=== PATIENT | female | born 1950 | race Caucasian/White ===

== ENCOUNTER 2022-02-12 08:11 | Outpatient (CLI) | payer MEDICARE, SELFPAY ==
[2022-02-12 13:33] LABS: Albumin* 4.4 g/dL (3.3-5.0); Chloride* 103 mmol/L (96-114); Sodium* 137 mmol/L (135-149)
[2022-02-12 13:34] LABS: Potassium* 4.3 mmol/L (3.6-5.1)
[2022-02-12 13:36] LABS: Aspartate Amino Transferase* 22 U/L (12-35); Bilirubin Total* 0.7 mg/dL (0.1-1.5); Blood Urea Nitrogen* 16 mg/dL (7-30); Carbon Dioxide* 28 mmol/L (20-32); Cholesterol* 242 mg/dL (90-199); Creatinine* 0.7 mg/dL (0.5-1.5); Estimated Glomerular Filt Rate 93.56; Glucose* 102 mg/dL (60-115); Triglycerides* 103 mg/dL (40-149)
[2022-02-12 13:37] LABS: Alanine Aminotransferase* 23 U/L (4-35); Alkaline Phosphatase* 71 U/L (40-150); Calcium* 9.8 mg/dL (8.4-10.6); HDL Cholesterol* 71 mg/dL (>=50); LDL Cholesterol Calculated 150 mg/dL (<100)
[2022-02-12 14:08] LABS: Free T4 Free Thyroxine* 1.01 ng/dL (0.70-1.85)
== END 2022-02-12 08:12 | disposition home or self-care (01) ==
PROVIDERS: PCP Physician Assistant Medical; Visit Provider Physician Assistant Medical
DX: I10 Essential (primary) hypertension (principal); E78.5 Hyperlipidemia, unspecified; M85.80 Other specified disorders of bone density and structure, unspecified site; R79.89 Other specified abnormal findings of blood chemistry
CPT/HCPCS: 80053; 80061; 84439; 84443

== ENCOUNTER 2022-03-25 13:42 | Outpatient (CLI) | payer MEDICARE, SELFPAY ==
--- NOTE | 2022-03-25 14:00 | CRLHL7_ITS ---
For Patients: As a result of the Cures Act, medical imaging exams and procedure reports are released immediately into your electronic medical record. You may view this report before your referring provider. If you have questions, please contact your health care provider. DXA BONE MINERAL DENSITY STUDY, 03/25/2022 Current height (inches): 67.0 Weight (lbs.): 220.0 Menopause age: 59 Ethnicity: White 1. Have you had a previous hip or vertebral fracture? No. 2. Have you had any fractures during your adult life which did not result from significant trauma (e.g., auto accident)? No. 3. Did either of your parents have a hip fracture? No. 4. Do you smoke? No. 5. Have you ever taken Glucocorticoids? No. 6. Do you have rheumatoid arthritis? No. 7. Do you have secondary osteoporosis? No. 8. Do you drink 3 or more alcoholic drinks per day? No. 9. Are you being treated for osteoporosis? No. 10. Have you ever taken any of the following medications: Actonel, Evista, Fosamax, Miacalcin, Reclast, Boniva, Forteo, HRT (i.e., estrogen/hormone therapy), Protelos, Prolia, Vitamin D, Calcium, other ??? please specify. ANSWER: Yes; vitamin D and calcium. 11. Do you have any of the following medical conditions: Anorexia or bulimia, asthma or emphysema, end stage renal disease, hyperparathyroidism, any seizure disorders, cancer, inflammatory bowel diseases, hysterectomy, other ??? please specify. ANSWER: Yes; hysterectomy. 12. What was your maximum height (inches)? 67. 13. Do you perform weight bearing exercise regularly? Yes. 14. Do you regularly consume dairy products? Yes. 15. Do you drink caffeinated beverages? Yes. If female: 16. At what age did your period start? 14. 17. Are you premenopausal? No. 18. How many full-term pregnancies have you had? 2. 19. Have you ever missed your period for more than 6 months in a row (not including or menopause)? No. TECHNIQUE: Bone mineral density study was performed using the [employer]. FINDINGS: The results of the study expressed as bone mineral density (BMD) are as follows: Lumbar Spine L1 to L4: BMD: 1.040 g/cm2. T-score: -0.1. Z-score: 2.0. Neck Left: BMD: 0.757 g/cm2. T-score: -0.8. Z-score: 0.9. Right: BMD: 0.682 g/cm2. T-score: -1.5. Z-score: 0.3. Total Left: BMD: 0.944 g/cm2. T-score: 0.0. Z-score: 1.5. Right: BMD: 0.896 g/cm2. T-score: -0.4. Z-score: 1.1. IMPRESSION: Osteopenia. COMPARISON: Compared with scan of 09/13/2019, the bone mineral density has increased by 3.6 percent at the spine and increased by 3.8 percent at the hip. *Comparison exams done prior to 01/2020 were performed on different unit, [facility]. FRAX 10-year Fracture Risk Major Osteoporotic Fracture: 9.2 percent Hip Fracture: 1.2 percent Reported Risk Factors: [place] () Neck BMD = 0.682, BMI = 34.5 NASEEM GAONA M.D. Diagnostic Radiologist [email or web address] Transcribed: 5:[address]/Dictated by: Naseem Gaona MD @ 03/25/2022 3:56:00 PM (Electronically Signed)
== END 2022-03-25 13:43 | disposition home or self-care (01) ==
LOC: RAD 13:43
PROVIDERS: PCP Physician Assistant Medical; Visit Provider Physician Assistant Medical
DX: M85.80 Other specified disorders of bone density and structure, unspecified site (principal); M85.89 Other specified disorders of bone density and structure, multiple sites
CPT/HCPCS: 77080

== ENCOUNTER 2022-05-19 11:10 | Outpatient (CLI) | payer MEDICARE, SELFPAY ==
--- NOTE | 2022-05-19 | CRLHL7_ITS ---
For Patients: As a result of the Century Cures Act, medical imaging exams and procedure reports are released immediately into your electronic medical record. You may view this report before your referring provider. If you have questions, please contact your health care provider. INDICATION: Pain COMPARISON: None. TECHNIQUE: A compression venous ultrasound exam was performed of the right lower extremity using dave-scale imaging, color Doppler and spectral Doppler analysis. FINDINGS: Sonographic imaging of the right lower extremity demonstrates normal compressibility and color Doppler venous blood flow within the common femoral vein, deep femoral vein, and the proximal greater saphenous vein. Within the thigh, the femoral vein is patent and compressible. At a lower level, the popliteal and posterior tibial veins also show normal compressibility and color Doppler venous blood flow. Limited imaging of the contralateral groin demonstrates a normal spectral waveform and color Doppler venous blood flow within the left common femoral vein. Popliteal cyst measuring 3.5 x 2.2 x 1.4 cm. IMPRESSION: No evidence of deep vein thrombosis within the right lower extremity. Dictated by Naseem Mathew MD @ 05/20/2022 9:12:50 AM (Electronically Signed)
[2022-05-19 13:29] LABS: D Dimer Quantitative* 2.33 ug/ml (0.00-0.50)
[2022-05-19 21:42] LABS: Albumin* 4.6 g/dL (3.3-5.0); Chloride* 98 mmol/L (96-114); Sodium* 136 mmol/L (135-149)
[2022-05-19 21:45] LABS: Alkaline Phosphatase* 80 U/L (40-150); Aspartate Amino Transferase* 26 U/L (12-35); Bilirubin Total* 0.5 mg/dL (0.1-1.5); Carbon Dioxide* 29 mmol/L (20-32); Creatinine* 0.7 mg/dL (0.5-1.5); Estimated Glomerular Filt Rate 94 ml/min; Glucose* 93 mg/dL (60-115); Total Protein* 7.3 g/dL (6.0-8.3)
[2022-05-19 22:35] LABS: Alanine Aminotransferase* 27 U/L (4-35); Blood Urea Nitrogen* 23 mg/dL (7-30); Calcium* 10.5 mg/dL (8.4-10.6); Magnesium* 1.7 mg/dL (1.5-2.6)
== END 2022-05-19 11:11 | disposition home or self-care (01) ==
PROVIDERS: PCP Physician Assistant Medical; Visit Provider Family Medicine
DX: M79.604 Pain in right leg (principal)
CPT/HCPCS: 80053; 83735; 85379; 93971

== ENCOUNTER 2023-07-13 08:56 | Outpatient (CLI) | payer MEDICARE, SELFPAY | END 2023-07-13 08:57 | disposition home or self-care (01) | LOC: NFLDREF 07-15 08:07 | PROVIDERS: PCP Physician Assistant Medical; Referring Provider Physician Assistant Medical; Visit Provider Physician Assistant Medical | DX: E78.5 Hyperlipidemia, unspecified (principal); I10 Essential (primary) hypertension; R79.89 Other specified abnormal findings of blood chemistry; M85.80 Other specified disorders of bone density and structure, unspecified site | CPT/HCPCS: 80053; 80061; 82306; 84443 ==

== ENCOUNTER 2024-07-03 11:28 | Outpatient (CLI) | payer MEDICARE, SELFPAY | END 2024-07-03 11:29 | disposition home or self-care (01) | LOC: NFLDREF 07-05 12:28 | PROVIDERS: PCP Physician Assistant Medical; Referring Provider Physician Assistant Medical; Visit Provider Physician Assistant Medical | DX: R79.89 Other specified abnormal findings of blood chemistry (principal); I10 Essential (primary) hypertension; E78.2 Mixed hyperlipidemia; M85.80 Other specified disorders of bone density and structure, unspecified site | CPT/HCPCS: 80053; 80061; 82306; 84443 ==

== ENCOUNTER 2024-08-03 14:39 | Outpatient (CLI) | payer MEDICARE, SELFPAY ==
--- NOTE | 2024-08-03 15:00 | CRLHL7_ITS ---
For Patients: As a result of the Century Cures Act, medical imaging exams and procedure reports are released immediately into your electronic medical record. You may view this report before your referring provider. If you have questions, please contact your health care provider. XR DXA Bone Mineral Density (BMD) Reason for exam: Other specified disorders of bone density and structure, unspecified site. Current height (in): 66. Weight (lb): 220. Menopause age: 59. Ethnicity: White. 1. Have you had a previous hip or vertebral fracture? No. 2. Have you had any fractures during your adult life which did not result from significant trauma (e.g., auto accident)? No. 3. Did either of your parents have a hip fracture? No. 4. Do you smoke? No. 5. Have you ever taken Glucocorticoids? No. 6. Do you have rheumatoid arthritis? No. 7. Do you have secondary osteoporosis? No. 8. Do you drink 3 or more alcoholic drinks per day? No. 9. Are you being treated for osteoporosis? No. 10. Have you ever taken any of the following medications: Actonel, Evista, Fosamax, Miacalcin, Reclast, Boniva, Forteo, HRT (i.e. estrogen/hormone therapy), Protelos, Prolia, Vitamin D, Calcium, other ??? please specify. ANSWER: Yes, vitamin D, calcium. 11. Do you have any of the following medical conditions: Anorexia or bulimia, asthma or emphysema, end stage renal disease, hyperparathyroidism, any seizure disorders, cancer, inflammatory bowel diseases, hysterectomy, other ??? please specify. ANSWER: Yes, hysterectomy. 12. What was your maximum height (inches)? 67. 13. Do you perform weight bearing exercise regularly? Yes. 14. Do you regularly consume dairy products? No. 15. Do you drink caffeinated beverages? Yes. 16. At what age did your period start? 14. 17. Are you premenopausal? No. 18. How many full term pregnancies have you had? 2. 19. Have you ever missed your period for more than 6 months in a row (not including or menopause)? No. TECHNIQUE: Bone mineral density study was performed using the [employer]. FINDINGS: The results of the study expressed as bone mineral density (BMD) are as follows: Lumbar spine L1 to L4: BMD: 1.111 g/cm2. T-score: 0.6. Z-score: 2.8. Neck Left: BMD: 0.764 g/cm2. T-score: -0.8. Z-score: 1.1. Right: BMD: 0.697 g/cm2. T-score: -1.4. Z-score: 0.5. Total Left: BMD: 0.988 g/cm2. T-score: 0.4. Z-score: 2.0. Right: BMD: 0.914 g/cm2. T-score: -0.2. Z-score: 1.4. IMPRESSION: Osteopenia. *Comparison exams done prior to 01/2020 were performed on different unit, [employer]. COMPARISON: Compared with scan of 03/25/2022, the bone mineral density has increased by 6.8 percent at the spine and increased by 4.7 percent at the left hip. Compared with scan of 09/13/2019, the bone mineral density has increased by 3.6 percent at the spine and increased by 1.6 percent at the left hip. FRAX 10-year Fracture Risk Right Hip: Major Osteoporotic Fracture: 9.1 percent Hip Fracture: 1.2 percent Reported Risk Factors: [place] () Neck BMD=0.697, BMI=35.5 Left Hip: Major Osteoporotic Fracture: 8.0 percent Hip Fracture: 0.8 percent Reported Risk Factors: [place] () Neck BMD=0.764, BMI=35.5 Naseem Mathew M.D. Diagnostic Radiologist [email or web address] JONAS/kelvin / bM/Dictated by: Naseem Mathew MD @ 08/04/2024 9:39:00 AM (Electronically Signed)
== END 2024-08-03 14:40 | disposition home or self-care (01) ==
LOC: RAD 14:40
PROVIDERS: PCP Physician Assistant Medical; Visit Provider Physician Assistant Medical
DX: M85.88 Other specified disorders of bone density and structure, other site (principal)
CPT/HCPCS: 77080